=== PATIENT | male | born 1990 | race African-American/Black ===

== ENCOUNTER 2020-11-01 14:54 | Emergency (ER) | payer OTHER ==
[~2020-11-01] VITALS: Ht 172.7 cm; Wt 72.6 kg
== END 2020-11-01 15:36 | disposition left against medical advice (07) ==
LOC: ER 14:56 → EDBD 14:56 → ER 15:36
DX: Z53.21 Procedure and treatment not carried out due to patient leaving prior to being seen by health care provider (principal); F41.9 Anxiety disorder, unspecified; R07.89 Other chest pain